=== PATIENT | female | born 1950 ===

== ENCOUNTER 2018-06-06 21:45 | Emergency (ER) | payer OTHER ==
--- NOTE | 2018-06-06 21:50 | EDPHY ---
H & P Time Seen by Provider: 06/06/18 21:55 HPI/ROS: Chief complaint: Progressive nasal vestibule swelling and tenderness for the 3 days HPI: 68-year-old female in prior good health. Arrived home here to the area from a plane trip. She started noticing a mild discomfort present to the very opening of the nostril. This has been progressive over the last 3 days to the point where she feels a swollen and pressure area of the nasal vestibule and the upper lip. She also feels a to be affecting her palate however I do not see anything at this point time. There is no antecedent illness last week. She has not been a using nasal sprays. There has been no trauma. She notes that there has been no allergy type symptoms such as itchiness or hives or nausea or vomiting wheezing or shortness of breath or rash She has never had MRSA prefer Se, but her mother has had MRSA, she has attended to in the last few months She has been managing the pain with ibuprofen which works. Denies use of nasal access or route for drugs of abuse. ROS: Constitutional - no fevers or chills. Eyes - no discharge, or injection ENT -see above Respiratory - No Shortness of breath, phlegm, wheezing or pleuritic chest pain. Musculoskeletal - no joint or muscle pain. Integument - no rashes. Neurological - no headache, numbness, tingling, or paresthesias. No focal motor weakness. Immunological - no swelling or lymphadenopathy 10 point ROS otherwise negative Physical Exam: Gen: Afebrile temperature my reading is 37.4 which is 99.4. She had just taken some Advil 1 hr prior. VSS Well nourished. Nontoxic. Phonation is normal HEENT: Normocephalic. Ears: TMs are clear. Hearing normal. Eyes: PERRL. No conjunctival injection or pallor, or discharge. No jaundice. Nose: No nasal discharge. Sinuses are nontender. The nasal vault does look irritated, erythematous, as seen looking into the nostrils with an otoscope. The area of ala nasi and vestiblue is particularly tender and somewhat dry. So tender that she can even pressure nose. The upper lip itself is not full or tender however does seem to be pushed out a little bit. However there is nothing on the hard or soft palate to be seen. There is no edema present to the lower lip or tongue or floor of the mouth. Throat: Membranes are moist. No enanthem. Oropharynx is without erythema or exudate, or edema. Normal phonation. No stridor. Normal phonation. Neck: Trachea is in the ML. No laryngeal tenderness. No adenopathy Skin: Good color, without pallor. There is no diaphoresis. Skin is warm and dry , without diaphoresis. Intact without rashes Constitutional: Initial Vital Signs Temperature (C) 37.3 C 06/06/18 21:57 Heart Rate 84 06/06/18 21:57 Respiratory Rate 16 06/06/18 21:57 Blood Pressure 175/82 H 06/06/18 21:57 O2 Sat (%) 94 06/06/18 21:57 O2 Delivery Mode Room Air Allergies/Adverse Reactions: morphine Allergy (Verified 06/06/18 21:57) Home Medications: Medication Instructions Recorded ALPRAZolam [Xanax 1 MG (*)] 06/06/18 Estrogens,Conjugated [Premarin 0.3 06/06/18 MG (*)] Progesterone, Micronized 06/06/18 [Progesterone] Sulfamethox/Tmp 800/160 mg 1 tab PO BID #20 tab 06/06/18 [Bactrim Ds] Medical Decision Making ED Course/Re-evaluation: Nothing on exam suggest that were dealing with an allergic phenomenon. There is no typical and you edema of the throat or lips. There is also no other ancillary other organ system involvement. She is not on any Carlo or Arb type antihypertensives. Bactrim would take care of typical strep and staph infections as well as MRSA note, is that she did visit what her niece who has had a recent strep infection. There is no crusting, as would be seen in impetigo. Differential Diagnosis: Diagnostic considerations include, but are not limited to, the following: Angioedema, sinusitis, pharyngitis, soft tissue skin infection of the midface, dental abscess - Data Points Medications Given: Discontinued Medications Trimethoprim/Sulfamethoxazole (Bactrim Ds Prepack#2) 1 btl TAKEHOME EDNOW ONE Stop: 06/06/18 22:12 Last Admin: 06/06/18 22:24 Dose: 1 btl Departure - Departure Disposition: Home, Routine, Self-Care Clinical Impression: Folliculitis Condition: Good Instructions: Sulfamethoxazole/Trimethoprim (By mouth), Folliculitis (ED) Additional Instructions: These kinds of nasal infections begin often as a nasal hair follicle infection. No nasal treatments of any sort for the next month: This includes plucking of hair, trimming hair and nasal flushes, such as Netipot. Bactrim Rx and starter pack tonight. Prescriptions: Sulfamethox/Tmp 800/160 mg [Bactrim Ds] 1 tab PO BID #20 tab
[2018-06-06] MEDS ORDERED: SULFAMET/TMP DS PREPACK#2 BTL TAKEHOME ONE (22:11)
[2018-06-06 22:27] VITALS: BP 145/83
== END 2018-06-06 22:30 | disposition home or self-care (01) ==
LOC: CED 21:45
DX: L73.9 Follicular disorder, unspecified (principal)